=== PATIENT | female | born 1975 ===

== ENCOUNTER 2025-04-01 16:02 | Emergency (ER) | payer SELFPAY ==
[2025-04-01 16:18] VITALS: BP 134/87; PULSE 97; RESP 18; TEMP 36.9; O2SAT 96
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
== END 2025-04-01 16:37 ==
PROVIDERS: Emergency Provider Family Medicine
DX: Z02.89 Encounter for other administrative examinations (principal); Z04.1 Encounter for examination and observation following transport accident
CPT/HCPCS: 99281